=== PATIENT | female | born 1990 | race Asian ===

== ENCOUNTER 2023-04-10 10:17 | Emergency (ER) | payer BC, OTHER ==
[2023-04-10 10:52] VITALS: BP 103/68; PULSE 75; RESP 15; TEMP 99.3; BMI 22.6
[2023-04-10] MEDS ORDERED: ACETAMINOPHEN 325 MG TABLET (FP) PO ONE (11:44)
[2023-04-10] MEDS ORDERED: DEXAMETHASONE SOD PHOSPHATE 10 MG/1 ML VIAL IM ONE (11:44)
[2023-04-10] MEDS ORDERED: KETOROLAC TROMETHAMINE 30 MG/1 ML VIAL IM ONE (11:44)
[2023-04-10] MEDS ORDERED: ACETAMINOPHEN 325 MG TABLET (FP) ONE (12:07)
[2023-04-10] MEDS ORDERED: DEXAMETHASONE SOD PHOSPHATE 10 MG/1 ML VIAL ONE (12:08)
[2023-04-10] MEDS ORDERED: KETOROLAC TROMETHAMINE 30 MG/1 ML VIAL ONE (12:08)
== END 2023-04-10 13:58 | disposition home or self-care (01) ==
LOC: JERFT 10:17
PROC: 3E0233Z Introduction of Anti-inflammatory into Muscle, Percutaneous Approach (ICD-10-PCS; principal; 2023-04-10)
PROC: 3E023GC Introduction of Other Therapeutic Substance into Muscle, Percutaneous Approach (ICD-10-PCS; 2023-04-10)
DX: M54.50 Low back pain, unspecified (principal); M25.569 Pain in unspecified knee
CPT/HCPCS: 72100-TC-FY; 99284-25; J1100